=== PATIENT | female | born 1995 | race Caucasian/White ===

== ENCOUNTER 2017-05-05 15:10 | Outpatient (CLI) | payer OTHER ==
[~2017-05-05 15:10] MED LIST: NO HOME MEDS
== END 2017-05-05 23:59 | disposition home or self-care (01) ==
LOC: RAD 15:10
PROVIDERS: ATTEND Physician Assistant Medical
DX: M54.5 Low back pain (principal); M54.2 Cervicalgia
CPT/HCPCS: 72050; 72074

== ENCOUNTER 2017-09-01 15:26 | Outpatient (CLI) | payer OTHER | END 2017-09-01 23:59 | disposition home or self-care (01) | LOC: RAD 15:26 | PROVIDERS: ATTEND Family Medicine | DX: M53.3 Sacrococcygeal disorders, not elsewhere classified (principal) | CPT/HCPCS: 72220 ==

== ENCOUNTER 2017-09-10 08:55 | Day surgery (SDC) | payer OTHER ==
[~2017-09-10] VITALS: Ht 157.5 cm; Wt 49.1 kg
[2017-09-10 09:00] VITALS: BP 101/65
[2017-09-10] MEDS ORDERED: CLINDAMYCIN (09:24)
[2017-09-10] MEDS ORDERED: birth control PO (09:25)
[2017-09-10 10:21] VITALS: BP 103/64
[2017-09-10 10:31] VITALS: BP 112/56
[2017-09-10 10:41] VITALS: BP 107/68
[2017-09-10] MEDS ORDERED: fentaNYL/PF 50MCG/1 ML 2ML syringe ONE (10:58)
[2017-09-10] MEDS ORDERED: MIDAZolam 5mg/5ml vial ONE (10:58)
== END 2017-09-10 11:05 | disposition home or self-care (01) ==
LOC: GI LAB 08:55
PROVIDERS: ATTEND Internal Medicine Gastroenterology
DX: K64.4 Residual hemorrhoidal skin tags (principal); K63.89 Other specified diseases of intestine; Z79.2 Long term (current) use of antibiotics; Z72.89 Other problems related to lifestyle; Z79.899 Other long term (current) drug therapy
CPT/HCPCS: 45380; 99152; J3010; J7030; 50555; A4620; G0500; J2250

== ENCOUNTER 2017-09-11 10:37 | Outpatient (CLI) | payer OTHER ==
[~2017-09-11 10:37] MED LIST changes: +CLINDAMYCIN; +MIDAZolam 5mg/5ml vial ONE; -NO HOME MEDS; +birth control PO; +fentaNYL/PF 50MCG/1 ML 2ML syringe ONE
== END 2017-09-11 23:59 | disposition home or self-care (01) ==
LOC: RAD 10:37
PROVIDERS: ATTEND Family Medicine
DX: M43.8X8 Other specified deforming dorsopathies, sacral and sacrococcygeal region (principal)
CPT/HCPCS: 72195; J2250; J3010

== ENCOUNTER 2017-09-20 21:08 | Emergency (ER) | payer OTHER ==
[~2017-09-20] VITALS: Ht 157.5 cm; Wt 49.1 kg
[~2017-09-20 21:08] MED LIST changes: -MIDAZolam 5mg/5ml vial ONE; -fentaNYL/PF 50MCG/1 ML 2ML syringe ONE
[2017-09-20 21:09] VITALS: BP 123/79
== END 2017-09-20 21:51 | disposition home or self-care (01) ==
LOC: ER 21:09
DX: S61.012A Laceration without foreign body of left thumb without damage to nail, initial encounter (principal); Z79.899 Other long term (current) drug therapy; W26.0XXA Contact with knife, initial encounter; Y93.89 Activity, other specified; Y92.099 Unspecified place in other non-institutional residence as the place of occurrence of the external cause; Y99.9 Unspecified external cause status
CPT/HCPCS: 12001; 99283; A6449

== ENCOUNTER 2018-02-25 02:04 | Emergency (ER) | payer OTHER ==
[~2018-02-25] VITALS: Ht 157.5 cm; Wt 49.1 kg
[2018-02-25] MEDS ORDERED: naproxen 500mg tablet PO ONE (03:10)
[2018-02-25] MEDS ORDERED: diphenhydrAMINE 25mg capsule PO ONE (03:10)
[2018-02-25 03:17] VITALS: BP 124/68
== END 2018-02-25 03:18 | disposition home or self-care (01) ==
LOC: ER 02:04
DX: J32.0 Chronic maxillary sinusitis (principal)
CPT/HCPCS: 99283; Q0163

== ENCOUNTER 2018-04-15 09:06 | Day surgery (SDC) | payer OTHER ==
[~2018-04-15] VITALS: Ht 158.8 cm; Wt 49.1 kg
[~2018-04-15 09:06] MED LIST changes: +MIDAZolam 5mg/5ml vial ONE; +fentaNYL/PF 50MCG/1 ML 2ML syringe ONE
[2018-04-15] MEDS ORDERED: LIDOcaine Viscous 15ml cup ONE (09:07)
[2018-04-15 09:15] VITALS: BP 124/66
[2018-04-15] MEDS ORDERED: TERB250T4 PO (09:20)
[2018-04-15 09:48] VITALS: BP 117/70
[2018-04-15 09:55] VITALS: BP 118/76
[2018-04-15 10:05] VITALS: BP 119/74
[2018-04-15 10:15] VITALS: BP 109/71
== END 2018-04-15 10:18 | disposition home or self-care (01) ==
LOC: GI LAB 09:06
PROVIDERS: ATTEND Internal Medicine Gastroenterology
DX: K29.50 Unspecified chronic gastritis without bleeding (principal); K44.9 Diaphragmatic hernia without obstruction or gangrene; K22.8 Other specified diseases of esophagus; K31.89 Other diseases of stomach and duodenum
CPT/HCPCS: 43239; 99152; J2250; J3010; J7030; A4620

== ENCOUNTER 2018-04-26 12:47 | Outpatient (CLI) | payer OTHER ==
[~2018-04-26 12:47] MED LIST changes: -MIDAZolam 5mg/5ml vial ONE; +TERB250T4 PO; -fentaNYL/PF 50MCG/1 ML 2ML syringe ONE
== END 2018-04-26 23:59 | disposition home or self-care (01) ==
LOC: RAD 12:47
PROVIDERS: ATTEND Family Medicine
DX: R10.13 Epigastric pain (principal)
CPT/HCPCS: 76700

== ENCOUNTER 2019-12-09 09:57 | Day surgery (SDC) | payer BC ==
[2019-11-29 11:47] LABS: URINE HCG NEGATIVE (NEG)
[2019-11-29 11:48] LABS: CLARITY,URINE CLEAR (Clear); COLOR,URINE YELLOW (Yellow); GLUCOSE, URINE NEGATIVE (Neg); KETONES,URINE NEGATIVE (Neg); LEUKOCYTE ESTERASE ,URINE NEGATIVE (Neg); NITRITES, URINE NEGATIVE (Neg); OCCULT BLOOD,URINE TRACE-INTACT (Neg); PROTEIN,URINE NEGATIVE (Neg); UROBILINOGEN,URINE 0.2 E.U/dL (0.2-1.0)
[2019-11-29 11:49] LABS: BASOPHILS % (AUTO) 0.7 % (0-1); EOSINOPHILS % (AUTO) 0.9 % (0-6); LYMPHOCYTES # (AUTO) 1.2 X10'3 (1.1-4.8); LYMPHOCYTES % (AUTO) 23.9 % (21-51); MEAN CORPUSCULAR HEMOGLOBIN 32.2 PG (27.0-31.0); MEAN CORPUSCULAR HGB CONC 33.6 g/dL (33.0-36.5); MEAN CORPUSCULAR VOLUME 95.9 FL (78-98); MEAN PLATELET VOLUME 10.2 FL (7.4-10.4); MONOCYTES # (AUTO) 0.3 X10'3 (0-0.9); NEUTROPHILS # (AUTO) 3.5 X10'3 (1.8-7.7); NEUTROPHILS % (AUTO) 69.5 % (42-75); PRE OP HEMATOCRIT 42.9 % (35.0-45.0); PRE OP HEMOGLOBIN 14.4 g/dL (12.0-16.0); PRE OP PLATELET COUNT 193 X10'3 (140-440); RED BLOOD COUNT 4.48 X10'6 (4.20-5.60); RED CELL DISTRIBUTION WIDTH 12.1 % (11.5-14.5)
[2019-11-29 11:49] LABS: UA COLLECTION TYPE CLN CATCH MIDSTREAM
[2019-11-29 12:10] LABS: MUCUS STRANDS FEW /LPF (Neg); RBC,URINE 0-2 /HPF (0-2); SQUAMOUS EPITHELIAL CELL,UR FEW /LPF (FEW); WBC,URINE NONE SEEN /HPF (0-4)
[2019-11-29 12:11] LABS: BACTERIA,URINE FEW /HPF (Neg)
[2019-11-29 12:12] LABS: ALBUMIN 4.2 G/DL (3.4-5.0); ALBUMIN/GLOBULIN RATIO 1.2 (1.1-1.5); ALKALINE PHOSPHATASE 75 IU/L (46-116); BLOOD UREA NITROGEN 9 MG/DL (7-18); BUN/CREATININE RATIO 12.2 (6.6-38.0); CALCIUM 9.1 MG/DL (8.5-10.1); CHLORIDE 103 MMOL/L (99-107); CREATININE 0.74 MG/DL (0.40-0.90); PRE OP ALT 17 U/L (30-65); PRE OP ANION GAP 6 (8-16); PRE OP AST 12 U/L (10-37); PRE OP BILIRUB, TOTAL 0.4 MG/DL (0.0-1.0); PRE OP GLUCOSE 80 MG/DL (70-104); PRE OP POTASSIUM 3.7 MMOL/L (3.4-5.1); PRE OP SODIUM 137 MMOL/L (135-145); TOTAL CARBON DIOXIDE 27.9 MMOL/L (24-32); TOTAL PROTEIN 7.6 G/DL (6.4-8.2); eGFR > 90 ML/MIN
[2019-12-09] VITALS (7 sets, daily range): BP systolic 104–115; BP diastolic 71–83
[~2019-12-09] VITALS: Ht 157.5 cm; Wt 45.0 kg
[~2019-12-09 09:57] MED LIST changes: -CLINDAMYCIN; +NORG1TAB90 PO; -TERB250T4 PO; -birth control PO; +ceFAZolin 1GM/D5W- ADD-VANTAGE 50 ML IV ONE; +famotidine 20mg tablet PO ONE; +ringers solution, lacted 1,000 ML IV SCH
[2019-12-09] MEDS ORDERED: bacitracin 15gm ointment TP ONE (10:46)
[2019-12-09] MEDS ORDERED: BUPIVAcaine/PF 2.5 mg/ml (0.25%) 30ml vial ONE (10:46)
[2019-12-09] MEDS ORDERED: propofol inj 20 ML IV ONE (11:34)
[2019-12-09] MEDS ORDERED: fentaNYL/PF 50MCG/1 ML 2ML syringe ONE (11:34)
[2019-12-09] MEDS ORDERED: midazolam 2 mg/2 ml injection ONE (11:34)
[2019-12-09] MEDS ORDERED: sevoflurane 250ml liquid IH ONE (11:34)
[2019-12-09] MEDS ORDERED: ROPIVAcaine 0.5% (5mg/ml) 30ml vial ONE (11:36)
[2019-12-09] MEDS ORDERED: dexamethasone sod phosphate 4mg/ml inj. ONE (12:14)
[2019-12-09] MEDS ORDERED: ondansetron/PF 4mg/2ml inj ONE (12:14)
--- NOTE | 2019-12-09 12:22 | NUR ---
ARRIVED IN PACU VIA GURNEY FROM OR WITH DR AVILES IN ATTENDANCE. REPORT RECEIVED. PT ASLEEP. LMA IN PLACE. VS STABLE. TOES WARM AND PINK., ORTHO BOOT INPLACE. ICE APPLIED
[2019-12-09] MEDS ORDERED: ringers solution, lacted 1,000 ML IV SCH (12:40)
[2019-12-09] MEDS ORDERED: morphine 4 MG/ML inj SYRINge IV PRN (12:40)
[2019-12-09] MEDS ORDERED: meperidine/PF 25mg/ml syringe IV PRN ×3 (12:40)
[2019-12-09] MEDS ORDERED: ondansetron/PF 4mg/2ml inj IV PRN (12:40)
[2019-12-09] MEDS ORDERED: morphine 2 MG/ML inj. syringe IV PRN (12:40)
[2019-12-09] MEDS ORDERED: proCHLORperazine 10 MG/2 ml inj IV PRN (12:40)
--- NOTE | 2019-12-09 12:42 | NUR ---
AWAKE C/O SEVERE PAIN, MEDICATED
--- NOTE | 2019-12-09 13:22 | NUR ---
UP, PIVOTED TO W/C WITHOUT PROBLEM. REVIEWED DISCHARGE INSTRUCTIONS WITH PT, INCLUDING WEIGHT BEARING ONLY FOR TRANSFERS, OTHERWISE NON-WEIGHT BEARING.. TO CAR VIA W/C, PICKED UP VALUABLES ON THE WAY TO CAR. TO CAR WITHOUT INCIDENT
== END 2019-12-09 13:22 | disposition home or self-care (01) ==
LOC: PRE-OP 09:57
PROVIDERS: ATTEND Podiatrist Foot & Ankle Surgery
DX: M72.2 Plantar fascial fibromatosis (principal); G89.18 Other acute postprocedural pain; Z88.5 Allergy status to narcotic agent; Z79.899 Other long term (current) drug therapy; Z20.828 Contact with and (suspected) exposure to other viral communicable diseases
CPT/HCPCS: 28041; 36415; 64450; 76942; 80053; 81001; 81025; 82948; 85025; 87635; A6223; J0690; J1100; J2175; J2250; J2405; J2704; J3010; J3490; A4215; A4618; A6449; A7000; J2795; J7120